=== PATIENT | male | born 1995 | race Two or more races ===

== ENCOUNTER 2016-09-21 12:58 | Emergency (ER) | payer OTHER ==
[2016-09-21 13:06] VITALS: BP 120/65; PULSE 98; TEMP 97.8; BMI 22.4
[2016-09-21] MEDS ORDERED: KETOROLAC TROMETHAMINE 30 MG/1 ML VIAL IM ONE (14:03)
[2016-09-21] MEDS ORDERED: KETOROLAC TROMETHAMINE 30 MG/1 ML VIAL ONE (14:05)
[2016-09-21] MEDS ORDERED: IBUPROFEN 600 MG TABLET (FP) PO ONE ×2 (14:07→14:08)
--- NOTE | 2016-09-21 14:47 | PDOC ---
History of Present Illness - General Chief Complaint: Injury Stated Complaint: FALL/ LT SIDE, LEG, SHOULDER PAIN Time Seen by Provider: 09/21/16 13:31 - History of Present Illness Initial Comments: 09/21/16 14:39 CHIEF COMPLAINT: fall HISTORY OF PRESENT ILLNESS: 21-year-old male with no past medical history presents to fast track with pain to left foot and left arm status post fall. Patient reports that he was running and slipped on a water bottle and hit his left side. No recent travel or sick contacts. PAST MEDICAL HISTORY: Denies past medical history FAMILY HISTORY: Denies SOCIAL HISTORY:Denies tobacco, alcohol, illicit drug use. SURGICAL HISTORY: Denies ALLERGIES: No known drug allergies REVIEW OF SYSTEMS General/Constitutional: Denies fever or chills. Denies weakness, weight change. HEENT: Denies change in vision. Denies ear pain or discharge. Denies sore throat. Cardiovascular: Denies chest pain or shortness of breath. Respiratory: Denies cough, wheezing, or hemoptysis. Gastrointestinal: Denies nausea, vomiting, diarrhea or constipation. Denies rectal bleeding. Genitourinary: Denies dysuria, frequency, or change in urination. Musculoskeletal: Denies joint or muscle swelling or pain. Denies neck or back pain. Skin and breasts: Denies rash or easy bruising. Neurologic: Denies headache, vertigo, loss of consciousness, or loss of sensation. Psychiatric: Denies depression or anxiety. Endocrine: Denies increased thirst. Denies abnormal weight change. Hematologic/Lymphatic: Denies anemia, easy bleeding, or history of blood clots. Allergic/Immunologic: Denies hives or skin allergy. Denies latex allergy. PHYSICAL EXAM General Appearance: Well-appearing, appropriately dressed. No apparent distress , no intoxication. HEENT: EOMI, PERRLA, normal ENT inspection, normal voice, TMs normal, pharynx normal. No conjunctival pallor. No photophobia, scleral icterus. Neck: Supple. Trachea midline. No tenderness, rigidity, carotid bruit, stridor , lymphadenopathy, or thyromegaly. Respiratory/Chest: Lungs CTAB. No shortness of breath, chest tenderness, respiratory distress, accessory muscle use. No crackles, rales, rhonchi, stridor , wheezing, dullness Cardiovascular: RRR. S1, S2. No JVD, murmur, bradycardia, tachycardia. Vascular Pulses: Dorsalis-Pedis (R): 2+, Dorsalis-Pedis (L): 2+ Gastrointestinal/Abdominal: Normal bowel sounds. Abdomen soft, non-distended. No tenderness or rebound tenderness. No organomegaly, pulsatile mass, guarding , hernia, hepatomegaly, splenomegaly. Lymphatic: No adenopathy, tenderness. Musculoskeletal/Extremities: Normal inspection. FROM of all extremities, normal capillary refill. Pelvis Stable. No CVA tenderness. No tenderness to extremities, pedal edema, swelling, erythema or deformity. Integumentary: Appropriate color, dry, warm. No cyanosis, erythema, jaundice or rash Neurologic: welding machine operator/tender II-XII intact. Fully oriented, alert. Appropriate mood/affect. Motor strength 5/5. No appreciable EOM palsy, facial droop or sensory deficit. Past History - Past Medical History Allergies/Adverse Reactions: Allergies Allergy/AdvReac Type Severity Reaction Status Date / Time No Known Allergies Allergy Verified 09/21/16 13:06 Home Medications: Ambulatory Orders Naproxen [Naprosyn -] 250 mg PO BID #14 tablet 09/21/16 Other medical history: NONE - Psycho/Social/Smoking Cessation Hx Suicidal Ideation: No Smoking History: Current every day smoker Number of Cigarettes Smoked Daily: 20 Information on smoking cessation initiated: Yes 'Breaking Loose' booklet given: 09/21/16 Hx Alcohol Use: Yes (SOCIAL) Drug/Substance Use Hx: No Substance Use Type: None *Physical Exam - Vital Signs Last Vital Signs Temp Pulse Resp BP Pulse Ox 97.8 F 98 H 20 120/65 99 09/21/16 13:02 09/21/16 13:02 09/21/16 13:02 09/21/16 13:02 09/21/16 13:02 ED Treatment Course - RADIOLOGY Radiology Studies Ordered: Category Date Time Status ANKLE & FOOT-LEFT* [RAD] Stat Radiology 09/21/16 14:04 Taken FOREARM- LEFT [RAD] Stat Radiology 09/21/16 14:04 Taken SHOULDER-LEFT [RAD] Stat Radiology 09/21/16 14:04 Taken - Medications Given in the ED: ED Medications Discontinued Medications Generic Name Dose Route Start Last Admin Trade Name Freq PRN Reason Stop Dose Admin Ibuprofen 600 mg 09/21/16 14:07 09/21/16 14:11 Motrin - PO 09/21/16 14:08 600 mg ONCE ONE Administration Ketorolac Tromethamine 30 mg 09/21/16 14:03 09/21/16 14:12 Toradol Injection - IM 09/21/16 14:04 Not Given ONCE ONE Medical Decision Making - Medical Decision Making 09/21/16 15:01 21 yo M with no PMH presents to fast track with pain to L shoulder, arm, and foot s/p fall. Recently took 200 mg Motrin. -L shoulder, arm, ft x-ray -30 mg Toradol Patient refuses Toradol -600 mg Motrin X-rays negative for fracture. Advised patient to follow RICE therapy instructions and f/u with ortho as needed. Advised patient of signs and symptoms for return to ER; patient verbalized understanding and agrees to plan. *DC/Admit/Observation/Transfer Diagnosis at time of Disposition: Fall Qualifiers: Encounter type: initial encounter Qualified Code(s): W19.XXXA - Unspecified fall, initial encounter - Discharge Dispostion Disposition: HOME Condition at time of disposition: Stable - Prescriptions Prescriptions: Naproxen [Naprosyn -] 250 mg PO BID #14 tablet - Referrals Referrals: Diego Grewal MD [Staff Physician] - - Patient Instructions Printed Discharge Instructions: DI for Toe Sprain, DI for Shoulder Pain Additional Instructions: Please take medication as prescribed. If your shoulder and foot pain persist past 5-7 days or worsen, please follow up with orthopedics for a possible MRI and/or physical therapy. If you experience any loss of sensation to your extremities, increased swelling, or any new or worsening symptoms, please return to the ER.
== END 2016-09-21 15:08 | disposition home or self-care (01) ==
LOC: JERFT 12:58
DX: M25.512 Pain in left shoulder (principal); W01.0XXA Fall on same level from slipping, tripping and stumbling without subsequent striking against object, initial encounter; Y93.02 Activity, running; Y92.89 Other specified places as the place of occurrence of the external cause
CPT/HCPCS: 73030-TC-LT; 73090-TC-LT; 73610-TC-LT; 73630-TC-LT; 99281-25